=== PATIENT | female | born 1970 | race Caucasian/White ===

== ENCOUNTER 2020-04-29 07:31 | Emergency (ER) | payer OTHER, SELFPAY ==
[2020-04-29 07:48] VITALS: BP 146/64; PULSE 85; RESP 18; TEMP 36.2; O2SAT 100
[2020-04-29 08:13] LABS: Add Urine Microscopic? YES; Appearance Urine Cloudy (Clear); Bacteria Urine 4+ /hpf; Bilirubin Urine Negative (Negative); Blood Urine 2+ (Negative); Color Urine Yellow (Yellow); Glucose Urine UA Negative (Negative); Ketones Urine Negative (Negative); Leukocyte Esterase Ur 2+ LEU/UL (Negative); Mucus Urine Heavy /lpf; Nitrate Urine Positive (Negative); Protein Urine 1+ mg/dL (Negative); Specific Grav Ur 1.029 (1.001-1.035); Squamous Epithelial Cell Urine Many /hpf (Few); Urobilinogen Urine Negative mg/dL (<2.0); WBC Urine 31-50 /hpf
--- NOTE | 2020-04-29 09:30 | ED.GENADULT ---
HPI - General Adult General Chief complaint: Urogenital-Female Stated complaint: UTI Time Seen by Provider: 04/29/20 08:47 Source: patient History of Present Illness HPI narrative: Patient is a 49 y/o female complaining of foul smelling urination, intermittent lower abdominal pain for last 2 weeks. There is no alleviating or exacerbating factor. She also has occasional dysuria. She denies any fever or flank pain. She has no vomiting or diarrhea. Related Data Allergies Allergy/AdvReac Type Severity Reaction Status Date / Time No Known Allergies Allergy Verified 04/29/20 07:49 Review of Systems Constitutional: Constitutional: Denies chills, Denies fever(s), Denies headache(s) and Denies weakness Eyes: Eyes: Denies blurry vision ENT: Denies headache(s) and Denies neck pain Cardiovascular: Cardiovascular: Denies chest pain and Denies dyspnea Respiratory: Respiratory: Denies cough and Denies dyspnea Gastrointestinal: Gastrointestinal: Reports abdominal pain, Denies diarrhea, Denies nausea and Denies vomiting Genitourinary: Genitourinary: Denies hematuria, Reports dysuria and Reports pelvic pain Musculoskeletal: Musculoskeletal: Denies back pain and Denies neck pain Neurologic: Denies headache(s) and Denies weakness Exam Const: General: no acute distress and well developed Orientation/consciousness: oriented to person, oriented to place, oriented to time and patient oriented x3 HENMT: Head: normocephalic Ears: external ears normal General nose exam: Normal external nose present Eyes: General: appearance normal, both eyes and all related structures Conjunctivae: conjunctivae normal Neck: Neck: normal visual inspection and full ROM Chest: Chest palpation & inspection: normal inspection of the chest and no tenderness Resp: Effort & Inspection: normal respiratory effort Auscultation: clear to auscultation bilaterally Cardio: Rate: regular rate Rhythm: regular rhythm GI: GI Palp: No abdominal tenderness and Yes Soft to palpation Skin: General skin exam: normal color and turgor normal Neuro: General: oriented to person, oriented to place, oriented to time and patient oriented x3 Cognition (Neuro): normal cognition Extrem: General: normal to inspection, full ROM and no pedal edema Psych: Appearance: grossly normal Mental Status: mental status grossly normal Affect: normal affect Course Vital Signs Vital signs: Vital Signs Temperature 36.2 C L 04/29/20 07:48 Pulse Rate 85 11/15/20 07:48 Respiratory Rate 18 04/29/20 07:48 Blood Pressure 146/64 H 04/29/20 07:48 Pulse Oximetry 100 04/29/20 07:48 Temperature 36.2 C L 04/29/20 07:48 Pulse Rate 85 04/29/20 07:48 Respiratory Rate 18 04/29/20 07:48 Blood Pressure 146/64 H 04/29/20 07:48 Pulse Oximetry 100 04/29/20 07:48 Medical Decision Making Vital Signs Vital Signs: Vital Signs Temperature 36.2 C L 04/29/20 07:48 Pulse Rate 85 04/29/20 07:48 Respiratory Rate 18 04/29/20 07:48 Blood Pressure 146/64 H 04/29/20 07:48 Pulse Oximetry 100 04/29/20 07:48 Temperature 36.2 C L 04/29/20 07:48 Pulse Rate 85 04/29/20 07:48 Respiratory Rate 18 04/29/20 07:48 Blood Pressure 146/64 H 04/29/20 07:48 Pulse Oximetry 100 04/29/20 07:48 Lab Data Labs: Lab Results 04/29/20 04/29/20 Range/Units 07:44 09:37 POC Capillary Glucose 226 H (65-105) mg/dl Urine Color Yellow (Yellow) Urine Appearance Cloudy H (Clear) Urine pH 5.0 (5.0-9.0) Ur Specific [place] 1.029 (1.001-1.035) Urine Protein 1+ H (Negative) mg/dL Urine Glucose (UA) Negative (Negative) mg/dL Urine Ketones Negative (Negative) mg/dL Ur Blood (Man) 2+ H (Negative) Urine Nitrate Positive H (Negative) Urine Bilirubin Negative (Negative) Urine Urobilinogen Negative (<2.0) mg/dL Leukocyte Esterase Rfl 2+ H (Negative) XANDER/UL Urine RBC 6-10 H (0-2) /hpf Urine WBC 31-50 H /
[2020-04-29 09:39] LABS: Glucose Point of Care 226 (65-105)
[2020-04-29 09:43] VITALS: RESP 16
== END 2020-04-29 09:43 | disposition home or self-care (01) ==
PROVIDERS: Emergency Provider Emergency Medicine
DX: N39.0 Urinary tract infection, site not specified (principal)
CPT/HCPCS: 81001; 81025; 87077; 87086; 87088; 87186; 99283